=== PATIENT | female | born 1950 | race Caucasian/White ===

== ENCOUNTER → 2022-07-05 | Outpatient (CLI) | payer OTHER | END | disposition home or self-care (01) | LOC: OIH 07:54 | PROVIDERS: ATTEND Family Medicine | DX: Z13.6 Encounter for screening for cardiovascular disorders (principal); I51.5 Myocardial degeneration | CPT/HCPCS: 75571 ==

== ENCOUNTER → 2024-03-15 | Outpatient (CLI) | payer OTHER | END | disposition home or self-care (01) | LOC: SHCH 13:02 | PROVIDERS: ATTEND Internal Medicine | DX: R06.02 Shortness of breath (principal) | CPT/HCPCS: 93306 ==

== ENCOUNTER → 2024-03-22 | Outpatient (CLI) | payer OTHER ==
[2024-03-22] MEDS: REGADENOSON 0.4 MG/5 ML PF SYG IVP ONE (13:03)
--- NOTE | 2024-03-25 12:57 | HMCSR ---
APPROVED REPORT Height: 5 ft 4in Weight: 171 lbs TEST INDICATIONS Abnormal ECG The imaging protocol used to acquire images was Rest Tc-99m/stress Tc-99m 1 day Consent: The procedure was explained and understood by the patient. Informerd consent was witnessed Eric Barboza RN First, low dose rest was performed then high dose stress. RESTING DATA: The resting ekg shows: NSR Rest SPECT myocardial perfusion imaging was performed in supine position 55 minutes following the int ravenous injection of 12.7 mCi of Tc-99 Sestamibi. Time of rest injection: 09:22: Date: 03/22/2024 Time of rest imagin:17: Date: 03/22/2024 PHARMACOLOGIC STRESS: Pharmacologic stress test was performed by injecting regadenoson 0.4 mg IV push followed by the intra venous injection of 32.5 mCi of Tc-99 Sestamibi. Time of stress injection: 10:44: Date: 03/22/2024 Time of stress imagin:01: Date: 03/22/2024 Heart Rate at time of stress injection: 80 bpm. Gated Stress SPECT was performed 77 minutes after stress injection. The images were gated to evaluate regional wall motion and calculate left ventricular ejection fracti on. STRESS DETAILS Reason for Termination: Infusion complete Stress Symptoms: No chest pain or symptoms Max HR Achieved: 95 bpm % of APMHR Achieved: 64 Max Blood Pressure: 143/72 mmHg Stress ECG: NSR Arrhythmia: No. ST Change: No. Study quality was good. Lung uptake was Normal. Artifact: No artifact LEFT VENTRICLE Size: The left ventricular size is normal. Systolic Function:The left ventricular systolic function is normal. Wall Motion: No regional wall motion abnormalities noted. The left ventricular ejection fraction was calculated to be 71%.TID = . LV PERFUSION Medium size, mild severity reversible perfusion defect at the distal anterior wall. No transient ischemic dilation of the left ventricle. RV Size/Shape Not visualized. IMPRESSION Mildly abnormal pharmacologic nuclear stress test. Global LV Function: Normal Stress ECG Summary: Normal LV Perfusion Summary: Abnormal LV Viability Summary: Potentially viable myocardium Conclusion Small amount of reversibility/ischemia of the distal anterior wall. Normal LV systolic function No transient ischemic dilation No ECG changes of ischemia. Abnormal cardiac stress test
== END | disposition home or self-care (01) ==
LOC: SHCH 09:05
PROVIDERS: ATTEND Internal Medicine
DX: R94.31 Abnormal electrocardiogram [ECG] [EKG] (principal)
CPT/HCPCS: 78452; 93017; J2785; A9500 ×2